=== PATIENT | female | born 1990 | race Caucasian/White ===

== ENCOUNTER 2018-08-30 08:08 | Emergency (ER) | payer OTHER ==
[~2018-08-30] VITALS: Ht 157.5 cm; Wt 61.1 kg
[~2018-08-30 08:08] MED LIST: DOCU5LIQ OR; IBUP600T26 OR; MAPA500T17 PO; MOM30SS OR; PRENTAB74 PO
[2018-08-30] MEDS ORDERED: LIDOCAINE 2% W/EPIN INJ 20ML **PRES FREE INJ ONE (09:30)
[2018-08-30] MEDS ORDERED: BACTRIM 160MG/800MG DS TAB PO ONE (09:45)
[2018-08-30] MEDS ORDERED: IBUPROFEN 600 MG TAB PO ONE (09:45)
[2018-08-30] MEDS ORDERED: BACT800T5 PO (09:51)
[2018-08-30 09:58] VITALS: BP 120/90
== END 2018-08-30 10:22 | disposition home or self-care (01) ==
LOC: M ED 08:08
DX: N76.4 Abscess of vulva (principal); F17.210 Nicotine dependence, cigarettes, uncomplicated; Z88.0 Allergy status to penicillin

== ENCOUNTER 2018-10-13 21:33 | Emergency (ER) | payer OTHER ==
[~2018-10-13] VITALS: Ht 157.5 cm; Wt 61.1 kg
[2018-10-13 21:33] VITALS: BP 125/75
[~2018-10-13 21:33] MED LIST changes: +BACT800T5 PO
[2018-10-13] MEDS ORDERED: BACT800T5 PO (22:26)
[2018-10-13] MEDS ORDERED: BACTRIM 160MG/800MG DS TAB PO ONE (22:30)
== END 2018-10-13 23:14 | disposition home or self-care (01) ==
LOC: M ED 21:33
DX: N76.4 Abscess of vulva (principal); Z88.0 Allergy status to penicillin; F17.210 Nicotine dependence, cigarettes, uncomplicated